=== PATIENT | female | born 1960 | race Caucasian/White ===

== ENCOUNTER 2017-01-17 18:16 | Emergency (ER) | payer OTHER ==
[~2017-01-17] VITALS: Ht 165.1 cm; Wt 101.0 kg
[~2017-01-17 18:16] MED LIST: FLUC150T17 PO; GUAI-47 PO; GUAI118L94 PO; IBUP-1542 PO; PHEN-538 PO; SODI75SP NASAL
[2017-01-17 18:59] VITALS: Ht 165.1 cm; Wt 101.0 kg
[2017-01-17] MEDS ORDERED: OSLT75C PO (19:47)
[2017-01-17] MEDS ORDERED: BENZ100C70 PO (19:47)
[2017-01-17] MEDS ORDERED: ACET500C5 PO (19:47)
--- NOTE | 2017-01-17 22:48 | ERD ---
ER Documentation Chief Complaint Date/Time DATE: 01/17/17 TIME: 22:34 Chief Complaint fever, cough/sore throat/ear pain x 5days HPI 56-year-old female with a past medical history of diabetes presents to the ED complaining of fever, cough, sore throat, body aches that started 5 days ago. Reports that everyone in her family especially her sister is sick with similar symptoms. States that she has not taken any medications for her symptoms. States that she has normal blood sugars. Denies any abdominal pain, nausea, vomiting, chest pain, shortness of breath, wheezing. Denies any leg swelling. ROS All systems reviewed and are negative except as per history of present illness. Medications Home Meds Active Scripts Acetaminophen* (Tylophen*) 500 Mg Capsule, 1 CAP PO Q6H Y for PAIN AND OR ELEVATED TEMP, #20 CAP Prov:BRYANT MUÑIZ-C 01/17/17 Benzonatate* (Tessalon Perle*) 100 Mg Capsule, 100 MG PO Q8H Y for COUGH, #20 CAP Prov:BRYANT MUÑIZ-C 01/17/17 Oseltamivir Phosphate* (Tamiflu*) 75 Mg Capsule, 75 MG PO BID for 5 Days, CAP Prov:BRYANT MUÑIZ-C 01/17/17 Fluconazole* (Diflucan*) 150 Mg Tablet, 150 MG PO ONCE, #1 TAB Prov:WENDY PATTON MD 04/14/16 Phenazopyridine Hcl* (Pyridium*) 200 Mg Tab, 200 MG PO TID Y for URINARY PAIN, # 6 TAB Prov:WENDY PATTON MD 04/14/16 Guaifenesin-Codeine Phosphate* (Guaifenesin* with Codeine Liq) 120 Ml Liquid, 5 ML PO q4h at bedtime for COUGH, #120 ML Prov:JENNY NORMAN NP 12/29/15 Ibuprofen* (Motrin*) 600 Mg Tab, 600 MG PO Q6H Y for PAIN AND OR ELEVATED TEMP, #30 TAB Prov:JENNY NORMAN NP 12/29/15 Guaifenesin-Dextromethorphan* (Mucinex* DM) 600-30 Mg Tabsr, 1 TAB PO Q12 for 7 Days, TAB Prov:FRANCIA PEREZ NP 11/12/15 Sodium Chloride/Sod Bicarb (Nasa Mist Saline [place]) 75 Ml [place], 2 SPRAYS NASAL BID, #1 BOTTLE Prov:FRANCIA PEREZ I. MD SENIOR RESEARCH SCIENTIST 11/12/15 Allergies Allergies: Coded Allergies: No Known Allergy (Unverified , 04/14/16) PMhx/Soc History of Surgery: Yes (hysterectomy, cholecystectomy) Anesthesia Reaction: No Hx Neurological Disorder: No Hx Respiratory Disorders: No Hx Cardiac Disorders: Yes (htn, dm) Hx Psychiatric Problems: No Hx Miscellaneous Medical Probl: No (diabetes) Hx Alcohol Use: No Hx Substance Use: No Hx Tobacco Use: No Physical Exam Vitals Vital Signs Date Time Temp Pulse Resp B/P Pulse Ox O2 Delivery O2 Flow Rate FiO2 01/17/17 18:59 98.1 83 18 126/62 97 Physical Exam Const: [id number], well-nourished. In no acute distress. Head: Atraumatic, normocephalic Eyes: Normal Conjunctiva without injection. No purulent discharge. PERRL. EOMI ENT: Normal external ear. Ear canal without erythema. Tympanic membrane pearly martinez without effusion or bulging. Nasal canal clear with normal turbinates. Moist oropharynx without tonsillar exudates. Non-erythematous pharynx. Uvula midline. No drooling. No trismus. Neck: Full range of motion. No meningismus. No cervical lymphadenopathy. Resp: Clear to auscultation bilaterally. No wheezing, rhonchi, rales, or crackles. No accessory muscle use. No retractions. Cardio: Regular rate and rhythm. No murmurs, rubs or gallops. Abd: Soft, non tender, non distended. Normal bowel sounds. No palpable masses. No rebound tenderness. No guarding. Skin: No petechiae or rashes Back: No midline tenderness. No CVA tenderness. Ext: No cyanosis, or edema. Neur: Awake and alert. Psych: Normal Mood and Affect Procedures/MDM This is a 56-year-old female with a past medical history of diabetes presents the ED complaining of fever, cough, sore throat, body aches that started 5 days ago. Patient is afebrile and nontoxic-appearing. Patient has normal vital signs. This patient presents to the ED with symptoms consistent with a viral flulike symptoms. Since patient is a high risk patient with a history of diabetes, patient can benefit with a course of Tamiflu. Patient is afebrile and has normal vital signs. Patient's physical exam include lungs which were clear to auscultation and a normal pulse oximetry. There is a low suspicion for pneumonia, pneumothorax, pulmonary embolism, epiglottitis, otitis media, otitis externa, viral/strep pharyngitis, sinusitis, peritonsillar abscess, mastoiditis , retropharyngeal abscess, meningitis, sepsis, acute abdomen or other emergent conditions. Fluids, rest, and symptomatic treatment are recommended for the management of patient's symptoms. Discharge medications: Tylenol, Tessalon Perles, Tamiflu Patient was instructed to return to the ED for any new or worsening symptoms. They should otherwise follow up with the primary care provider within 1-2 days. The patient's questions were answered at the time of discharge. Patient understood and agreed with discharge management. Departure Diagnosis: Primary Impression: Flu-like symptoms Condition: Stable Patient Instructions: Influenza (Adult) Referrals: COMMUNITY CLINICS YOU HAVE RECEIVED A MEDICAL SCREENING EXAM AND THE RESULTS INDICATE THAT YOU DO NOT HAVE A CONDITION THAT REQUIRES URGENT TREATMENT IN THE EMERGENCY DEPARTMENT. FURTHER EVALUATION AND TREATMENT OF YOUR CONDITION CAN WAIT UNTIL YOU ARE SEEN IN YOUR DOCTORS OFFICE WITHIN THE NEXT 1-2 DAYS. IT IS YOUR RESPONSIBILITY TO MAKE AN APPOINTMENT FOR FOLOW-UP CARE. IF YOU HAVE A PRIMARY DOCTOR --you should call your primary doctor and schedule an appointment IF YOU DO NOT HAVE A PRIMARY DOCTOR YOU CAN CALL OUR PHYSICIAN REFERRAL HOTLINE AT IF YOU CAN NOT AFFORD TO SEE A PHYSICIAN YOU CAN CHOSE FROM THE FOLLOWING [facility] CLINICS [facility] [address] [facility] [address] [facility] [address] [facility] [address] [facility] [address] [facility]. [facility]. [address] [facility]. [facility] YOU HAVE RECEIVED A MEDICAL SCREENING EXAM AND THE RESULTS INDICATE THAT YOU DO NOT HAVE A CONDITION THAT REQUIRES URGENT TREATMENT IN THE EMERGENCY DEPARTMENT. FURTHER EVALUATION AND TREATMENT OF YOUR CONDITION CAN WAIT UNTIL YOU ARE SEEN IN YOUR DOCTORS OFFICE WITHIN THE NEXT 1-2 DAYS. IT IS YOUR RESPONSIBILITY TO MAKE AN APPOINTMENT FOR FOLOW-UP CARE. IF YOU HAVE A PRIMARY DOCTOR --you should call your primary doctor and schedule and appointment IF YOU DO NOT HAVE A PRIMARY DOCTOR YOU CAN CALL OUR PHYSICIAN REFERRAL HOTLINE AT . IF YOU CAN NOT AFFORD TO SEE A PHYSICIAN YOU CAN CHOSE FROM THE FOLLOWING [facility] INSTITUTIONS: [facility] [address] [place] [address] [facility] [address] [place], [place] [id number] [place] [address] [address] [place] [address] [facility] URGENT CARE/SPECIALTIES Additional Instructions: Visite a fernandez chanel judd para un EXAMEN.Regrese a estas instalaciones si no se mejora essence esperbamos o essence le dijimos. BRYANT MUÑIZ PA-C Jan 17, 2017 22:47
== END 2017-01-17 19:48 | disposition home or self-care (01) ==
LOC: E/R 18:16
DX: R50.9 Fever, unspecified (principal); R05 Cough; J02.9 Acute pharyngitis, unspecified; I10 Essential (primary) hypertension; E11.9 Type 2 diabetes mellitus without complications
CPT/HCPCS: 99284

== ENCOUNTER 2017-06-05 06:38 | Emergency (ER) | payer OTHER ==
[~2017-06-05] VITALS: Ht 165.1 cm; Wt 99.0 kg
[~2017-06-05 06:38] MED LIST changes: +ACET500C5 PO; +BENZ100C70 PO; +OSLT75C PO
[2017-06-05 06:39] VITALS: Ht 165.1 cm; Wt 99.0 kg
[2017-06-05] MEDS ORDERED: IBUPROFEN 600 MG TAB PO ONE (07:30)
[2017-06-05] MEDS ORDERED: LIDOCAINE 1% (MDV) 20 ML INJ SC ONE (07:30)
--- NOTE | 2017-06-05 07:31 | ERD ---
ER Documentation Chief Complaint Date/Time DATE: 06/05/17 TIME: 07:25 Chief Complaint splinter in left foot x 6 days DM HPI This is a 57-year-old female with a history of type 2 diabetes who presents the emergency department for complaints of left foot pain 6 days. Patient states that she was walking barefoot and believes that she may have got a splinter embedded into the bottom of her foot however she is not 100% sure what punctured the skin. She states that since that time she has experienced a 7 out of 10 sharp pain localized to the medial plantar region of the foot at the base of the first metatarsal which does not radiate. She states the pain is worse with walking and relieved by rest. She denies any fever, chills, nausea, vomiting, diarrhea, abdominal pain, headache. She states she called her primary care physician regarding the problem and he sent her here for x-ray and removal of the foreign body. ROS All systems reviewed and are negative except as per history of present illness. Medications Home Meds Active Scripts Mupirocin* (Bactroban*) 2% -22 Gram Oint...g., 1 APPLIC TOP BID for 7 Days, EA Prov:JHONNY NUNN PA-C 06/05/17 Acetaminophen* (Tylophen*) 500 Mg Capsule, 1 CAP PO Q6H Y for PAIN AND OR ELEVATED TEMP, #20 CAP Prov:BRYANT MUÑIZ PA-C 01/17/17 Benzonatate* (Tessalon Perle*) 100 Mg Capsule, 100 MG PO Q8H Y for COUGH, #20 CAP Prov:BRYANT MUÑIZ-C 01/17/17 Oseltamivir Phosphate* (Tamiflu*) 75 Mg Capsule, 75 MG PO BID for 5 Days, CAP Prov:BRYANT MUÑIZ-C 01/17/17 Fluconazole* (Diflucan*) 150 Mg Tablet, 150 MG PO ONCE, #1 TAB Prov:WENDY PATTON MD 04/14/16 Phenazopyridine Hcl* (Pyridium*) 200 Mg Tab, 200 MG PO TID Y for URINARY PAIN, # 6 TAB Prov:WENDY PATTON MD 04/14/16 Guaifenesin-Codeine Phosphate* (Guaifenesin* with Codeine Liq) 120 Ml Liquid, 5 ML PO q4h at bedtime for COUGH, #120 ML Prov:JENNY NORMAN X. CREATIVE SERVICES COORDINATOR 12/29/15 Ibuprofen* (Motrin*) 600 Mg Tab, 600 MG PO Q6H Y for PAIN AND OR ELEVATED TEMP, #30 TAB Prov:JENNY NORMAN X. CREATIVE SERVICES COORDINATOR 12/29/15 Guaifenesin-Dextromethorphan* (Mucinex* DM) 600-30 Mg Tabsr, 1 TAB PO Q12 for 7 Days, TAB Prov:PEREZFRANCIA I. CREATIVE SERVICES COORDINATOR 11/12/15 Sodium Chloride/Sod Bicarb (Nasa Mist Saline [place]) 75 Ml [place], 2 SPRAYS NASAL BID, #1 BOTTLE Prov:PEREZFRANCIA I. CREATIVE SERVICES COORDINATOR 11/12/15 Allergies Allergies: Coded Allergies: No Known Allergy (Unverified , 06/05/17) PMhx/Soc History of Surgery: Yes (hysterectomy, cholecystectomy) Anesthesia Reaction: No Hx Neurological Disorder: No Hx Respiratory Disorders: No Hx Cardiac Disorders: Yes (htn, dm) Hx Psychiatric Problems: No Hx Miscellaneous Medical Probl: No (diabetes) Hx Alcohol Use: No Hx Substance Use: No Hx Tobacco Use: No Physical Exam Vitals Vital Signs Date Time Temp Pulse Resp B/P Pulse Ox O2 Delivery O2 Flow Rate FiO2 06/05/17 06:39 98.4 87 16 144/69 97 Physical Exam Const: Well-developed, well-nourished, no acute distress Head: Atraumatic Eyes: Normal Conjunctiva ENT: Normal External Ears, Nose and Mouth. Neck: Full range of motion..~ No meningismus. Resp: Clear to auscultation bilaterally Cardio: Regular rate and rhythm, no murmurs Abd: Soft, non tender, non distended. Normal bowel sounds Skin: Small erythematous pinpoint lesion located on the plantar surface of the left foot at the base of the first metatarsal. Slight tenderness to palpation. Back: No midline or flank tenderness Ext: Left foot: Warm and well perfused. Brisk capillary refill. Patient has full range of motion at knee and ankle joint and is able to wiggle toes. Sensation to light touch intact. Pedal pulse 2+ equal and bilateral. No cyanosis, or edema Neur: Awake and alert Psych: Normal Mood and Affect Results 24 hrs Current Medications Medications (Trade) Dose Ordered Sig/Kody Route PRN Reason Start Time Stop Time Status Last Admin Dose Admin Ibuprofen (Motrin) 600 mg ONCE ONCE PO 06/05/17 07:30 06/05/17 07:31 DC 06/05/17 07:17 Lidocaine (Xylocaine 1% (Mdv) 20 ml) 20 ml ONCE ONCE SC 06/05/17 07:30 06/05/17 07:31 DC Procedures/MDM PROCEDURE: XR Left foot. CLINICAL INDICATION: Left foot pain, concern for foreign body TECHNIQUE: Three views of the left foot were obtained. COMPARISON: No prior studies are available for comparison. FINDINGS: There is no acute fracture or dislocation. Alignment is normal. Joint spaces are preserved. There is mild medial soft tissue swelling near the first metatarsal. Small probable sesamoids are present near the fifth metatarsal head. There is extensive plantar calcaneal enthesopathy. IMPRESSION: 1. No radiographic evidence of acute osseous abnormality or radiopaque foreign body. 2. Mild medial soft tissue swelling near the first metatarsal head. RPTAT: UU .Florentin Tiwari MD, MD Date Time Electronically viewed and signed by .Florentin Tiwari MD, MD on 06/05/2017 07: 40 .K/ CC: JHONNY NUNN PA-C This is a 57-year-old female with a history of diabetes who presents emergency department for complaints of sharp localized left foot pain, worse with ambulation, which she believes was the result of a splinter. Patient denies any trauma or fall. Physical exam with evidence of small erythematous lesion at the base of the fifth metatarsal. Patient does not exhibit any swelling, erythema, or decreased sensation or range of motion. Vital signs reviewed. Patient afebrile, not tachycardic, normotensive and non-hypoxic upon arrival. Patient denies any complaints of abdominal pain, nausea, vomiting, fever or chills. X-ray Foot 3V Interpreted by me: Bones: No fracture Joints: No dislocation Foreign body: None Foreign body removal performed by me: Location: Left medial plantar foot at base of first metatarsal Anesthesia: Local 1% Lidocaine with epinephrine Technique: Superficial half centimeter incision made with 15 blade scalpel. Small splinterlike particle removed from epidermal region as well as dermal region. No evidence of foreign body deep to the dermis Packing: None Complications: Neurovascularly intact post procedure 48 hour wound check. Scar minimization instructions given. Patient's skin symptoms have stabilized while they have been evaluated in the department and are appropriate for outpatient care and work up. Exam and w/u not consistent w/ sepsis, deep space infection, fracture or dislocation. Patient received 1 dose of Motrin while in the emergency department and simple dressing was applied. There is no evidence of deep tissue infection, tendon or bone injury, or abscess formation. No evidence of ulcer formation or decreased perfusion. History and physical consistent with foot pain likely due to a splinter. Because of the patient's history of diabetes I will prescribe her topical antibiotic ointment. Patient to follow-up with primary care physician this week. Based on patient's history of present illness and physical examination the decision was made to discharge. The patient was re-evaluated after ED treatment and stabilizing measures, and symptoms have improved. There is no evidence of life threatening injuries or illnesses at this time. On re-examination, patient resting in no distress, stable vital signs, reports feeling better and safe for discharge with outpatient follow up with PMD in 1-2 days. Patient given return precautions. Departure Diagnosis: Primary Impression: Foot pain Laterality: left Qualified Code: M79.672 - Left foot pain JHONNY NUNN PA-C Jun 05, 2017 07:31
--- NOTE | 2017-06-05 07:40 | RADRPT ---
PROCEDURE: XR Left foot. CLINICAL INDICATION: Left foot pain, concern for foreign body TECHNIQUE: Three views of the left foot were obtained. COMPARISON: No prior studies are available for comparison. FINDINGS: There is no acute fracture or dislocation. Alignment is normal. Joint spaces are preserved. There is mild medial soft tissue swelling near the first metatarsal. Small probable sesamoids are p resent near the fifth metatarsal head. There is extensive plantar calcaneal enthesopathy. IMPRESSION: 1. No radiographic evidence of acute osseous abnormality or radiopaque foreign body. 2. Mild medial soft tissue swelling near the first metatarsal head. RPTAT: UU .Florentin Tiwari MD, MD Date Time Electronically viewed and signed by .Florentin Tiwari MD, on 06/05/2017 07:40 .K/
[2017-06-05] MEDS ORDERED: MUPI22OI2 TOP (07:57)
== END 2017-06-05 08:11 | disposition home or self-care (01) ==
LOC: FTE 06:38
DX: M79.672 Pain in left foot (principal); I10 Essential (primary) hypertension; E11.9 Type 2 diabetes mellitus without complications

== ENCOUNTER 2017-11-17 14:19 | Emergency (ER) | END 2017-11-17 16:55 | disposition home or self-care (01) ==

== ENCOUNTER 2019-01-24 18:09 | Emergency (ER) | payer OTHER ==
[~2019-01-24] VITALS: Ht 167.6 cm; Wt 80.0 kg
[~2019-01-24 18:09] MED LIST changes: +BENZ-6 PO; -BENZ100C70 PO; +CIPR-193 PO; +FLUC150T PO; -FLUC150T17 PO; +MUPI22OI2 TOP; +OSEL75CA23 PO; -OSLT75C PO
[2019-01-24 18:12] VITALS: PULSE 85; Ht 167.6 cm; Wt 80.0 kg
[2019-01-24 21:09] VITALS: BP 136/71; RESP 18
[2019-01-24] MEDS ORDERED: PHENAZOPYRIDINE 100 MG TAB PO ONE (21:30)
[2019-01-24] MEDS ORDERED: PHEN-538 PO (22:03)
--- NOTE | 2019-01-24 23:25 | ERD ---
ER Documentation Chief Complaint Chief Complaint pain with urination HPI Patient is a 58-year-old female with diabetes who presents saying "I think I have a urine infection". She said that she started with symptoms this week. She has urinary burning. She said it was worse yesterday. She had no treatment as of yet. She took amoxicillin for a sore throat recently. Upon review of old medical record the patient has multiple visits for similar complaints. She said that her primary doctor is Dr. Priest. ROS All systems reviewed and are negative except as per history of present illness. Medications Home Meds Active Scripts Phenazopyridine Hcl* (Pyridium*) 200 Mg Tab, 200 MG PO TID PRN for URINARY PAIN, #6 TAB Prov:NICOLE BLISS MD 01/24/19 Phenazopyridine Hcl* (Pyridium*) 200 Mg Tab, 200 MG PO TID PRN for URINARY PAIN, #6 TAB Prov:PRINCESS SIMENTAL MD 11/17/17 Ciprofloxacin Hcl* (Ciprofloxacin Hcl*) 250 Mg Tablet, 250 MG PO BID for 5 Days, #10 TAB Prov:PRINCESS SIMENTAL MD 11/17/17 Mupirocin* (Bactroban*) 2% -22 Gram Oint...g., 1 APPLIC TOP BID for 7 Days, EA Prov:JHONNY NUNN-C 06/05/17 Acetaminophen* (Tylophen*) 500 Mg Capsule, 1 CAP PO Q6H PRN for PAIN AND OR ELEVATED TEMP, #20 CAP Prov:BRYANT MUÑIZ-C 01/17/17 Benzonatate* (Tessalon Perle*) 100 Mg Capsule, 100 MG PO Q8H PRN for COUGH, #20 CAP Prov:BRYANT MUÑIZ-C 01/17/17 Oseltamivir Phosphate* (Tamiflu*) 75 Mg Capsule, 75 MG PO BID for 5 Days, CAP Prov:BRYANT MUÑIZ-C 01/17/17 Fluconazole* (Diflucan*) 150 Mg Tablet, 150 MG PO ONCE, #1 TAB Prov:WENDY PATTON MD 04/14/16 Phenazopyridine Hcl* (Pyridium*) 200 Mg Tab, 200 MG PO TID PRN for URINARY PAIN, #6 TAB Prov:WENDY PATTON MD 04/14/16 Guaifenesin-Codeine Phosphate* (Guaifenesin* with Codeine Liq) 120 Ml Liquid, 5 ML PO q4h at bedtime for COUGH, #120 ML Prov:JENNY NORMAN. SHEET METAL WORKER APPRENTICE 12/29/15 Ibuprofen* (Motrin*) 600 Mg Tab, 600 MG PO Q6H PRN for PAIN AND OR ELEVATED TEMP, #30 TAB Prov:JENNY NORMAN. SHEET METAL WORKER APPRENTICE 12/29/15 Guaifenesin-Dextromethorphan* (Mucinex* DM) 600-30 Mg Tabsr, 1 TAB PO Q12 for 7 Days, TAB Prov:PEREZFRANCIA I. SHEET METAL WORKER APPRENTICE 11/12/15 Sodium Chloride/Sod Bicarb (Nasa Mist Saline [place]) 75 Ml [place], 2 SPRAYS NASAL BID, #1 BOTTLE Prov:PEREZFRANCIA I. SHEET METAL WORKER APPRENTICE 11/12/15 Allergies Allergies: Coded Allergies: No Known Allergy (Unverified , 06/05/17) PMhx/Soc History of Surgery: Yes (CHOLECYSTESTOMY, HYSTERECTOMY ) Anesthesia Reaction: No Hx Neurological Disorder: No Hx Respiratory Disorders: No Hx Cardiac Disorders: Yes (HTN, HYPERLIPIDEMIA ) Hx Psychiatric Problems: No Hx Miscellaneous Medical Probl: Yes (DM II ) Hx Alcohol Use: No Hx Substance Use: No Hx Tobacco Use: No FmHx Family History: No diabetes Physical Exam Vitals Vital Signs Date Temp Pulse Resp B/P (MAP) Pulse Ox O2 O2 Flow FiO2 Time Delivery Rate 01/24/19 98.1 18 136/71 97 21:09 (92) 01/24/19 98.1 85 18 136/71 97 18:12 (92) Physical Exam Const: No acute distress Head: Atraumatic Eyes: Normal Conjunctiva ENT: Normal External Ears, Nose and Mouth. Neck: Full range of motion. No meningismus. Resp: Clear to auscultation bilaterally Cardio: Regular rate and rhythm, no murmurs Abd: Soft, non tender, non distended. Normal bowel sounds Skin: No petechiae or rashes Back: No midline or flank tenderness Ext: No cyanosis, or edema Neur: Awake and alert Psych: Normal Mood and Affect Results 24 hrs Laboratory Tests Test 01/24/19 21:22 Bedside Urine pH (LAB) 6.0 Bedside Urine Protein (LAB) Negative Bedside Urine Glucose (UA) Negative Bedside Urine Ketones (LAB) Negative Bedside Urine Blood Trace-intact Bedside Urine Nitrite (LAB) Negative Bedside Urine Leukocyte Esterase (L Negative Current Medications Medications Dose Sig/Kody Start Time Status Last (Trade) Ordered Route PRN Stop Time Admin Dose Reason Admin 200 mg ONCE ONCE 01/24/19 DC 01/24/19 Phenazopyridi PO 21:30 21:26 ne HCl 01/24/19 21:31 (Pyridium) Procedures/MDM Urine dip negative for infection. Patient is a 58-year-old female who presents with dysuria. Urine dip was negative for infection. I would treat her with Pyridium for symptom medic relief. She may have been treated by the amoxicillin that she recently took for her sore throat. She can return for any worsening symptoms. I do not believe she requires further workup or admission to the hospital. Departure Diagnosis: Primary Impression: Dysuria Condition: Fair Patient Instructions: Dysuria Referrals: Your doctor Additional Instructions: Call your primary care doctor TOMORROW for an appointment during the next 1 WEEK.Tell the secretary receptionist that you were referred from this facility.See the doctor sooner or return here if your condition worsens before your appointment time. NICOLE BLISS MD Jan 24, 2019 23:25
== END 2019-01-24 22:10 | disposition home or self-care (01) ==
LOC: E/R 18:09
DX: R30.0 Dysuria (principal); E11.9 Type 2 diabetes mellitus without complications; I10 Essential (primary) hypertension
CPT/HCPCS: 81003; 99282

== ENCOUNTER 2019-01-26 17:15 | Emergency (ER) | payer OTHER ==
[~2019-01-26] VITALS: Ht 172.7 cm; Wt 102.1 kg
[2019-01-26 17:40] VITALS: Ht 172.7 cm; Wt 102.1 kg
[2019-01-26] MEDS ORDERED: IBUP-1542 PO (22:32)
--- NOTE | 2019-01-26 22:34 | ERD ---
ER Documentation Chief Complaint Chief Complaint Complains of left hand pain after a fall HPI 58-year-old female presents with left hand and wrist pain and right rib cage pain after she had a mechanical trip and fall secondary to tripping over a tree. No head injury or KO. She is right-hand dominant. No numbness or tingling. She is ambulatory. ROS All systems reviewed and are negative except as per history of present illness. Medications Home Meds Active Scripts Ibuprofen* (Motrin*) 600 Mg Tab, 600 MG PO Q6, #30 TAB Prov:ANALIA MERLOS PA-C 01/26/19 Phenazopyridine Hcl* (Pyridium*) 200 Mg Tab, 200 MG PO TID PRN for URINARY PAIN, #6 TAB Prov:NICOLE BLISS MD 01/24/19 Phenazopyridine Hcl* (Pyridium*) 200 Mg Tab, 200 MG PO TID PRN for URINARY PAIN, #6 TAB Prov:PRINCESS SIMENTAL MD 11/17/17 Ciprofloxacin Hcl* (Ciprofloxacin Hcl*) 250 Mg Tablet, 250 MG PO BID for 5 Days, #10 TAB Prov:PRINCESS SIMENTAL MD 11/17/17 Mupirocin* (Bactroban*) 2% -22 Gram Oint...g., 1 APPLIC TOP BID for 7 Days, EA Prov:JHONNY NUNN PA-C 06/05/17 Acetaminophen* (Tylophen*) 500 Mg Capsule, 1 CAP PO Q6H PRN for PAIN AND OR ELEVATED TEMP, #20 CAP Prov:BRYANT MUÑIZ PA-C 01/17/17 Benzonatate* (Tessalon Perle*) 100 Mg Capsule, 100 MG PO Q8H PRN for COUGH, #20 CAP Prov:BRYANT MUÑIZ PA-C 01/17/17 Oseltamivir Phosphate* (Tamiflu*) 75 Mg Capsule, 75 MG PO BID for 5 Days, CAP Prov:BRYANT MUÑIZ PA-C 01/17/17 Fluconazole* (Diflucan*) 150 Mg Tablet, 150 MG PO ONCE, #1 TAB Prov:WENDY PATTON MD 04/14/16 Phenazopyridine Hcl* (Pyridium*) 200 Mg Tab, 200 MG PO TID PRN for URINARY PAIN, #6 TAB Prov:WENDY PATTON MD 04/14/16 Guaifenesin-Codeine Phosphate* (Guaifenesin* with Codeine Liq) 120 Ml Liquid, 5 ML PO q4h at bedtime for COUGH, #120 ML Prov:JENNY NORMAN. SENIOR MARKETING MANAGER 12/29/15 Ibuprofen* (Motrin*) 600 Mg Tab, 600 MG PO Q6H PRN for PAIN AND OR ELEVATED TEMP, #30 TAB Prov:JENNY NORMAN. SENIOR MARKETING MANAGER 12/29/15 Guaifenesin-Dextromethorphan* (Mucinex* DM) 600-30 Mg Tabsr, 1 TAB PO Q12 for 7 Days, TAB Prov:PEREZFRANCIA I. SENIOR MARKETING MANAGER 11/12/15 Sodium Chloride/Sod Bicarb (Nasa Mist Saline [place]) 75 Ml [place], 2 SPRAYS NASAL BID, #1 BOTTLE Prov:PEREZFRANCIA I. SENIOR MARKETING MANAGER 11/12/15 Allergies Allergies: Coded Allergies: No Known Allergy (Unverified , 06/05/17) PMhx/Soc History of Surgery: Yes (CHOLECYSTESTOMY, HYSTERECTOMY ) Anesthesia Reaction: No Hx Neurological Disorder: No Hx Respiratory Disorders: No Hx Cardiac Disorders: Yes (HTN, HYPERLIPIDEMIA ) Hx Psychiatric Problems: No Hx Miscellaneous Medical Probl: Yes (DM II ) Hx Alcohol Use: No Hx Substance Use: No Hx Tobacco Use: No Smoking Status: Never smoker FmHx Family History: No diabetes Physical Exam Vitals Vital Signs Date Temp Pulse Resp B/P (MAP) Pulse Ox O2 O2 Flow FiO2 Time Delivery Rate 01/26/19 99.3 76 20 149/73 97 17:40 (98) Physical Exam Const: No acute distress Head: Atraumatic Eyes: Normal Conjunctiva ENT: Normal External Ears, Nose and Mouth. Neck: Full range of motion. No meningismus. Resp: Clear to auscultation bilaterally Cardio: Regular rate and rhythm, no murmurs, mild right lateral rib cage tenderness, no step-offs or bony abnormalities Hand/wrist-left Skin: No laceration, or evidence of external trauma Compartments: Soft Sensation: Intact shoulder/pinky/middle finger/thumb web space Bones: Nontender Snuffbox: Nontender Joints: No effusion Procedures/MDM Patient presents after mechanical fall with left hand and wrist pain and right rib cage pain. X-rays were read by my supervising physician Dr. Karimi as being negative for fracture or dislocation. Patient discharged with prescription for Motrin. Patient counseled regarding my diagnostic impression and care plan. Prior to discharge all questions answered. Pt agrees with treatment plan and understands strict return precautions. Pt is instructed to follow up with primary care provider within 24-48 hours. Precautionary instructions provided including instructions to return to the ER if not improving or for any worsening or changing symptoms or concerns. Departure Diagnosis: Primary Impression: Rib contusion Additional Impression: Hand pain Condition: Stable Patient Instructions: Rib Contusion, Wrist Sprain Additional Instructions: Llame al doctor MAANA y magi adriane SUZAN PARA DENTRO DE 1-2 DHALIWAL.Dgale a la secretaria que nosotros le instruimos hacer esta suzan.Avise o llame si fernandez condicin se empeora antes de la suzan. Regresa aqui si peor o no mejor. ANALIA MERLOS PA-C Jan 26, 2019 22:34
[2019-01-26 23:04] VITALS: BP 135/71; PULSE 78; RESP 18
== END 2019-01-26 23:05 | disposition home or self-care (01) ==
LOC: FTE 17:15
DX: S20.211A Contusion of right front wall of thorax, initial encounter (principal); I10 Essential (primary) hypertension; E11.9 Type 2 diabetes mellitus without complications; W01.0XXA Fall on same level from slipping, tripping and stumbling without subsequent striking against object, initial encounter; Y92.9 Unspecified place or not applicable
CPT/HCPCS: 71100

== ENCOUNTER 2019-05-22 06:46 | Emergency (ER) | payer OTHER ==
[~2019-05-22] VITALS: Ht 160 cm; Wt 100.0 kg
[2019-05-22 06:48] VITALS: BP 136/65; PULSE 65; RESP 16; Ht 160 cm; Wt 100.0 kg
[2019-05-22] MEDS ORDERED: PHENAZOPYRIDINE 100 MG TAB PO ONE (07:00)
--- NOTE | 2019-05-22 07:02 | ERD ---
ER Documentation Chief Complaint Chief Complaint pt is bib self with c/o buring with urination x 3 days HPI Patient is a 59 years old female with past medical history of hypertension, hyperlipidemia, diabetes presenting to the clinic for dysuria, urinary urgency, bladder fullness X 3 days. Patient admits to taking [id number] AZO without resolution of symptoms. Patient denies fever, chills, night sweats, abdominal pain, bloating, hematochezia, melena, vaginal discharge, vaginal bleeding, nausea, emesis. ROS All systems reviewed and are negative except as per history of present illness. Medications Home Meds Active Scripts Ciprofloxacin Hcl* (Ciprofloxacin Hcl*) 250 Mg Tablet, 250 MG PO BID for 5 Days, #10 TAB Prov:RIGO SANTILLAN PA-C 05/22/19 Ibuprofen* (Motrin*) 600 Mg Tab, 600 MG PO Q6, #30 TAB Prov:ANALIA MERLOS PA-C 01/26/19 Phenazopyridine Hcl* (Pyridium*) 200 Mg Tab, 200 MG PO TID PRN for URINARY PAIN, #6 TAB Prov:NICOLE BLISS MD 01/24/19 Phenazopyridine Hcl* (Pyridium*) 200 Mg Tab, 200 MG PO TID PRN for URINARY PAIN, #6 TAB Prov:PRINCESS SIMENTAL MD 11/17/17 Ciprofloxacin Hcl* (Ciprofloxacin Hcl*) 250 Mg Tablet, 250 MG PO BID for 5 Days, #10 TAB Prov:PRINCESS SIMENTAL MD 11/17/17 Mupirocin* (Bactroban*) 2% -22 Gram Oint...g., 1 APPLIC TOP BID for 7 Days, EA Prov:JHONNY NUNN PA-C 06/05/17 Acetaminophen* (Tylophen*) 500 Mg Capsule, 1 CAP PO Q6H PRN for PAIN AND OR ELEVATED TEMP, #20 CAP Prov:BRYANT MUÑIZ PA-C 01/17/17 Benzonatate* (Tessalon Perle*) 100 Mg Capsule, 100 MG PO Q8H PRN for COUGH, #20 CAP Prov:BRYANT MUÑIZ PA-C 01/17/17 Oseltamivir Phosphate* (Tamiflu*) 75 Mg Capsule, 75 MG PO BID for 5 Days, CAP Prov:BRYANT MUÑIZ PA-C 01/17/17 Fluconazole* (Diflucan*) 150 Mg Tablet, 150 MG PO ONCE, #1 TAB Prov:WENDY PATTON MD 04/14/16 Phenazopyridine Hcl* (Pyridium*) 200 Mg Tab, 200 MG PO TID PRN for URINARY PAIN, #6 TAB Prov:WENDY PATTON MD 04/14/16 Guaifenesin-Codeine Phosphate* (Guaifenesin* with Codeine Liq) 120 Ml Liquid, 5 ML PO q4h at bedtime for COUGH, #120 ML Prov:JENNY NORMAN. CHRONIC MANAGER 12/29/15 Ibuprofen* (Motrin*) 600 Mg Tab, 600 MG PO Q6H PRN for PAIN AND OR ELEVATED TEMP, #30 TAB Prov:JENNY NOMRAN. CHRONIC MANAGER 12/29/15 Guaifenesin-Dextromethorphan* (Mucinex* DM) 600-30 Mg Tabsr, 1 TAB PO Q12 for 7 Days, TAB Prov:PEREZFRANCIA CARDENAS I. CHRONIC MANAGER 11/12/15 Sodium Chloride/Sod Bicarb (Nasa Mist Saline [place]) 75 Ml [place], 2 SPRAYS NASAL BID, #1 BOTTLE Prov:PEREZFRANCIA I. CHRONIC MANAGER 11/12/15 Allergies Allergies: Coded Allergies: No Known Allergy (Unverified , 06/05/17) PMhx/Soc History of Surgery: Yes (CHOLECYSTESTOMY, HYSTERECTOMY ) Anesthesia Reaction: No Hx Neurological Disorder: No Hx Respiratory Disorders: No Hx Cardiac Disorders: Yes (HTN, HYPERLIPIDEMIA ) Hx Psychiatric Problems: No Hx Miscellaneous Medical Probl: Yes (DM II ) Hx Alcohol Use: No Hx Substance Use: No Hx Tobacco Use: No Smoking Status: Never smoker FmHx Family History: No diabetes, No coronary disease, No other Physical Exam Vitals Vital Signs Date Temp Pulse Resp B/P (MAP) Pulse Ox O2 O2 Flow FiO2 Time Delivery Rate 05/22/19 98.3 65 16 136/65 98 06:48 (88) Physical Exam Const: No acute distress Head: Atraumatic Eyes: Normal Conjunctiva Resp: Clear to auscultation bilaterally Cardio: Regular rate and rhythm, no murmurs Abd: Soft, non tender, non distended. Normal bowel sounds. Negative Moreno sign Rovsing sign, McBurney's point tenderness, guarding, rebound tenderness, Deep sign, Olsen Ace sign. Skin: No petechiae or rashes Back: No midline or flank tenderness Neur: Awake and alert Psych: Normal Mood and Affect Results 24 hrs Laboratory Tests Test 05/22/19 07:03 Urine Color YELLOW Urine Clarity SLIGHTLY CLOUDY Urine pH 5.0 Urine Specific [place] 1.021 Urine Ketones NEGATIVE mg/dL Urine Nitrite NEGATIVE mg/dL Urine Bilirubin NEGATIVE mg/dL Urine Urobilinogen NEGATIVE mg/dL Urine Leukocyte Esterase 2+ [place]/ul Urine Microscopic RBC 3 /HPF Urine Microscopic WBC 28 /HPF Urine Squamous Epithelial Cells FEW /HPF Urine Mucus FEW /HPF Urine Hemoglobin NEGATIVE mg/dL Urine Glucose NEGATIVE mg/dL Urine Total Protein NEGATIVE mg/dl Current Medications Medications Dose Sig/Kody Start Time Status Last (Trade) Ordered Route PRN Stop Time Admin Dose Reason Admin 100 mg ONCE ONCE 05/22/19 DC 05/22/19 Phenazopyridi PO 07:00 07:03 ne HCl 05/22/19 07:01 (Pyridium) Procedures/MDM Patient was seen and evaluated for dysuria. Urinalysis revealed leukocyte esterase and urine WBC which is most likely UTI. Patient was given Pyridium in ED. Patient is stable and ready for discharge. Follow-up with PCP. Patient will be discharged with Cipro 250 mg X 5 days. Departure Diagnosis: Primary Impression: Dysuria Additional Impression: UTI (urinary tract infection) Urinary tract infection type: site unspecified Hematuria presence: without hematuria Qualified Codes: N39.0 - Urinary tract infection, site not specified Condition: Stable Patient Instructions: Dysuria, Understanding Urinary Tract Infections (UTIs) Referrals: [facility] Additional Instructions: Paciente aconseja volver a Departamento de urgencias inmediatamente para sntomas nuevos o que empeoran . Paciente aconseja posteriores con el PCP en 2-3 fuller . Paciente verbaliza la comprehensin y est de acuerdo con el tratamiento y el curso de accin. Si el paciente no tiene ninguna de atencin primaria pueden seguir con [facility] [id number] [place] [address] o [facility] + [address] [address] RIGO SANTILLAN PA-C May 22, 2019 07:02
[2019-05-22] MEDS ORDERED: CIPR-193 PO (07:19)
== END 2019-05-22 07:32 | disposition home or self-care (01) ==
LOC: FTE 06:46
DX: N39.0 Urinary tract infection, site not specified (principal); E11.9 Type 2 diabetes mellitus without complications; I10 Essential (primary) hypertension
CPT/HCPCS: 81001; 99283